=== PATIENT | male | born 1950 | race Caucasian/White ===

== ENCOUNTER 2018-02-01 21:19 | Inpatient (IN) | payer MEDICARE ==
[~2018-02-01] VITALS: Ht 172.7 cm; Wt 71.2 kg
[2018-02-01] MEDS ORDERED: ALBUTEROL SULFATE 2.5 MG/3 ML ONE (21:27)
[2018-02-01] MEDS ORDERED: ALBUTEROL 0.5%, 20ML NPPB SCH (21:30)
[2018-02-01] MEDS ORDERED: PLEASE ENTER HEIGHT AND WEIGHT MC SCH (21:30)
[2018-02-01] MEDS ORDERED: methylPREDNISolone SOD SUCC 125 MG/2 ML IVP ONE (21:30)
[2018-02-01 21:37] LABS: BASOPHILS # (AUTO) 0.05 x10^3/uL (0-0.1); BASOPHILS % (AUTO) 0 % (0-1); EOSINOPHILS # (AUTO) 0.31 x10^3/uL (0-0.4); EOSINOPHILS % (AUTO) 2 % (1-7); LYMPHOCYTES # (AUTO) 1.59 x10^3/uL (1-3.4); LYMPHOCYTES % (AUTO) 10 % (22-44); MD NO; MEAN CORPUSCULAR HEMOGLOBIN 32.5 pg (27.5-34.5); MEAN CORPUSCULAR HGB CONC 33.8 g/dL (33.2-36.2); MEAN CORPUSCULAR VOLUME 96.3 fL (81-97); MEAN PLATELET VOLUME 7.7 fL (7.4-10.4); MONOCYTES # (AUTO) 1.19 x10^3/uL (0.2-0.8); MONOCYTES % (AUTO) 7 % (2-9); NEUTROPHILS # (AUTO) 13.51 x10^3/uL (1.8-6.8); NEUTROPHILS % (AUTO) 81 % (42-75); PLATELET COUNT 398 x10^3/uL (130-400); RED BLOOD COUNT 4.35 x10^6/uL (4.38-5.82)
[2018-02-01 21:48] LABS: ALANINE AMINOTRANSFERASE 40 U/L (12-78); ALBUMIN 2.9 g/dL (3.4-5.0); ANION GAP 6 mmol/L (5-15); CALCIUM 8.5 mg/dL (8.5-10.1); CHLORIDE 106 mmol/L (98-107); CREATININE 1.04 mg/dL (0.7-1.3)
[2018-02-01 21:52] LABS: ALKALINE PHOSPHATASE 192 U/L (45-117); BILIRUBIN,TOTAL 0.6 mg/dL (0.2-1.0); TOTAL PROTEIN 7.5 g/dL (6.4-8.2); TROPONIN I 0.015 ng/mL (0.000-0.045)
[2018-02-01] MEDS: SODIUM CHLORIDE FLUSH 10ML SYR IVF SCH (23:00)
[2018-02-01] MEDS ORDERED: hydrALAzine 20 MG/ML, 1ML IVPush PRN (23:00)
[2018-02-01] MEDS ORDERED: BISACODYL 10 MG SUPP PR PRN (23:00)
[2018-02-01] MEDS ORDERED: ACETAMINOPHEN 325 MG TABLET PO PRN (23:00)
[2018-02-01] MEDS: methylPREDNISolone SOD SUCC 125 MG/2 ML IVPush SCH (23:00)
[2018-02-01] MEDS ORDERED: ONDANSETRON ODT 4 MG PO PRN (23:00)
[2018-02-01] MEDS ORDERED: DOXYCYCLINE 100 MG in DEXTROSE 5% 250 ML IV SCH (23:00)
[2018-02-01] MEDS ORDERED: POLYETHYLENE GLYCOL 17 GM PACKET PO PRN (23:00)
[2018-02-01] MEDS ORDERED: methylPREDNISolone SOD SUCC 125 MG/2 ML ONE (23:07)
[2018-02-01] MEDS ORDERED: CEFTRIAXONE PMX 1GM/50ML 50 ML ONE (23:08)
[2018-02-01] MEDS: CEFTRIAXONE PMX 1GM/50ML 50 ML IV SCH (23:17)
[2018-02-02 00:01] VITALS: BP 127/66
[2018-02-02] MEDS: SODIUM CHLORIDE 0.9% 1,000 ML IV SCH ×2 (00:07→14:36)
[2018-02-02] MEDS: HEPARIN 5,000 UNITS/ML, 1ML SQ SCH ×4 (00:08→23:20)
[2018-02-02] MEDS: NICOTINE 14MG/24 HR PATCH.TD24 TD SCH ×2 (00:09→23:22)
[2018-02-02] MEDS ORDERED: ALBUTEROL 0.5%, 20ML NPPB PRN (03:00)
[2018-02-02 05:17] LABS: MEAN CORPUSCULAR HGB CONC 32.6 g/dL (33.2-36.2); MEAN CORPUSCULAR VOLUME 98.1 fL (81-97); MEAN PLATELET VOLUME 8.3 fL (7.4-10.4); PLATELET COUNT 332 x10^3/uL (130-400); RED BLOOD COUNT 4.12 x10^6/uL (4.38-5.82); RED CELL DISTRIBUTION WIDTH 13.8 % (9.4-14.8)
[2018-02-02 05:24] LABS: ALBUMIN 2.5 g/dL (3.4-5.0); ANION GAP 5 mmol/L (5-15); CALCIUM 8.2 mg/dL (8.5-10.1); CHLORIDE 108 mmol/L (98-107)
[2018-02-02 05:28] LABS: ALANINE AMINOTRANSFERASE 37 U/L (12-78); ALKALINE PHOSPHATASE 184 U/L (45-117); BILIRUBIN,TOTAL 0.4 mg/dL (0.2-1.0); CREATININE 1.15 mg/dL (0.7-1.3); TOTAL PROTEIN 6.9 g/dL (6.4-8.2)
[2018-02-02 05:44] LABS: BASOPHILS # (AUTO) 0.01 x10^3/uL (0-0.1); BASOPHILS % (AUTO) 0 % (0-1); EOSINOPHILS % (AUTO) 0 % (1-7); LYMPHOCYTES # (AUTO) 0.51 x10^3/uL (1-3.4); LYMPHOCYTES % (AUTO) 4 % (22-44); MD SCAN; MONOCYTES # (AUTO) 0.11 x10^3/uL (0.2-0.8); MONOCYTES % (AUTO) 1 % (2-9); NEUTROPHILS # (AUTO) 13.17 x10^3/uL (1.8-6.8); NEUTROPHILS % (AUTO) 96 % (42-75)
[2018-02-02] MEDS: methylPREDNISolone SOD SUCC 125 MG/2 ML IVPush SCH ×4 (05:59→23:20)
[2018-02-02] MEDS: ASPIRIN 81 MG TABLET EC PO SCH (06:00)
[2018-02-02 08:21] VITALS: BP 116/68
[2018-02-02] MEDS: SODIUM CHLORIDE FLUSH 10ML SYR IVF SCH ×2 (09:00→22:04)
[2018-02-02] MEDS: SENNA/DOCUSATE TABLET PO SCH (09:22)
[2018-02-02 13:27] VITALS: BP 135/74
[2018-02-02 19:55] VITALS: BP 131/65
[2018-02-02] MEDS ORDERED: ALBUTEROL SULFATE 2.5 MG/3 ML ONE (22:27)
[2018-02-02] MEDS ORDERED: ALBUTEROL SULFATE 2.5 MG/3 ML NPPB PRN (23:00)
[2018-02-02] MEDS: CEFTRIAXONE PMX 1GM/50ML 50 ML IV SCH (23:19)
[2018-02-03 00:14] LABS: MICROSCOPIC NOT IND
[2018-02-03 00:23] LABS: CULTURE INDICATED? NO
[2018-02-03 00:48] VITALS: BP 130/60
[2018-02-03] MEDS: ASPIRIN 81 MG TABLET EC PO SCH (05:09)
[2018-02-03] MEDS: SODIUM CHLORIDE 0.9% 1,000 ML IV SCH ×2 (05:09→20:15)
[2018-02-03] MEDS: methylPREDNISolone SOD SUCC 125 MG/2 ML IVPush SCH ×2 (05:09→11:43)
[2018-02-03 06:50] VITALS: BP 115/67
[2018-02-03] MEDS: HEPARIN 5,000 UNITS/ML, 1ML SQ SCH ×3 (07:45→22:36)
[2018-02-03] MEDS: SENNA/DOCUSATE TABLET PO SCH (07:45)
[2018-02-03] MEDS: SODIUM CHLORIDE FLUSH 10ML SYR IVF SCH ×2 (07:45→21:00)
[2018-02-03] MEDS: ALBUTEROL SULFATE 2.5 MG/3 ML NPPB PRN ×2 (10:15→20:29)
[2018-02-03 12:10] VITALS: BP 110/63
[2018-02-03 19:00] VITALS: BP 133/66
[2018-02-03] MEDS: NICOTINE 14MG/24 HR PATCH.TD24 TD SCH (22:37)
[2018-02-03] MEDS: CEFTRIAXONE PMX 1GM/50ML 50 ML IV SCH (23:02)
[2018-02-04 01:36] VITALS: BP 119/58
[2018-02-04] MEDS: ALBUTEROL SULFATE 2.5 MG/3 ML NPPB PRN (04:06)
[2018-02-04] MEDS: ASPIRIN 81 MG TABLET EC PO SCH (06:07)
[2018-02-04 07:33] VITALS: BP 111/69
[2018-02-04] MEDS: HEPARIN 5,000 UNITS/ML, 1ML SQ SCH ×3 (07:55→23:34)
[2018-02-04] MEDS: SODIUM CHLORIDE FLUSH 10ML SYR IVF SCH ×2 (09:00→21:29)
[2018-02-04] MEDS: SENNA/DOCUSATE TABLET PO SCH (09:00)
[2018-02-04 12:07] VITALS: BP 144/75
[2018-02-04] MEDS ORDERED: ALBU6.7H IH (16:47)
[2018-02-04] MEDS ORDERED: ASPI81TA45 PO ×2 (16:47)
[2018-02-04] MEDS ORDERED: CEFD300C37 PO ×2 (16:47)
[2018-02-04] MEDS ORDERED: PRED10TA PO ×2 (16:47)
[2018-02-04 19:30] VITALS: BP 134/68
[2018-02-04] MEDS: CEFTRIAXONE PMX 1GM/50ML 50 ML IV SCH (23:34)
[2018-02-04] MEDS: NICOTINE 14MG/24 HR PATCH.TD24 TD SCH (23:34)
[2018-02-05 03:36] VITALS: BP 149/79
[2018-02-05] MEDS: ASPIRIN 81 MG TABLET EC PO SCH (05:57)
[2018-02-05 07:31] VITALS: BP 146/80
[2018-02-05] MEDS: SENNA/DOCUSATE TABLET PO SCH (09:00)
[2018-02-05] MEDS: SODIUM CHLORIDE FLUSH 10ML SYR IVF SCH ×2 (09:30→21:27)
[2018-02-05] MEDS: HEPARIN 5,000 UNITS/ML, 1ML SQ SCH ×3 (09:30→23:35)
[2018-02-05 12:26] VITALS: BP 148/71
[2018-02-05 21:35] VITALS: BP 146/76
[2018-02-05] MEDS: NICOTINE 14MG/24 HR PATCH.TD24 TD SCH (23:35)
[2018-02-05] MEDS: CEFTRIAXONE PMX 1GM/50ML 50 ML IV SCH (23:35)
[2018-02-06] VITALS: BP 145/72
[2018-02-06] MEDS: ASPIRIN 81 MG TABLET EC PO SCH (06:00)
[2018-02-06 07:25] VITALS: BP 155/85
[2018-02-06] MEDS: HEPARIN 5,000 UNITS/ML, 1ML SQ SCH ×3 (08:47→23:08)
[2018-02-06] MEDS: SODIUM CHLORIDE FLUSH 10ML SYR IVF SCH ×2 (08:48→21:35)
[2018-02-06] MEDS: SENNA/DOCUSATE TABLET PO SCH (08:48)
[2018-02-06] MEDS: ALBUTEROL SULFATE 2.5 MG/3 ML NPPB PRN (10:57)
[2018-02-06 12:41] VITALS: BP 144/75
[2018-02-06] MEDS ORDERED: PRED10TA PO (16:26)
[2018-02-06] MEDS ORDERED: ASPI81TA45 PO (16:31)
[2018-02-06 18:40] VITALS: BP 154/75
[2018-02-06] MEDS: NICOTINE 14MG/24 HR PATCH.TD24 TD SCH (23:08)
[2018-02-07 02:10] VITALS: BP 128/73
[2018-02-07] MEDS: ALBUTEROL SULFATE 2.5 MG/3 ML NPPB PRN (02:46)
[2018-02-07] MEDS: ASPIRIN 81 MG TABLET EC PO SCH (05:54)
[2018-02-07] MEDS: HEPARIN 5,000 UNITS/ML, 1ML SQ SCH ×2 (05:55→15:11)
[2018-02-07 06:35] VITALS: BP 135/66
[2018-02-07] MEDS: SENNA/DOCUSATE TABLET PO SCH (08:31)
[2018-02-07] MEDS: SODIUM CHLORIDE FLUSH 10ML SYR IVF SCH (08:31)
[2018-02-07 12:10] VITALS: BP 135/70
== END 2018-02-07 16:52 | DRG 871 ==
LOC: ED 22:10 → EDIP 22:43 → 5SO 23:18
PROVIDERS: ADMIT Internal Medicine; ATTEND Internal Medicine
DX: A41.9 Sepsis, unspecified organism (principal); J96.21 Acute and chronic respiratory failure with hypoxia; J44.1 Chronic obstructive pulmonary disease with (acute) exacerbation; E44.0 Moderate protein-calorie malnutrition; F17.200 Nicotine dependence, unspecified, uncomplicated; Z68.23 Body mass index [BMI] 23.0-23.9, adult; D72.829 Elevated white blood cell count, unspecified; F10.10 Alcohol abuse, uncomplicated; Y90.9 Presence of alcohol in blood, level not specified; I10 Essential (primary) hypertension; I25.10 Atherosclerotic heart disease of native coronary artery without angina pectoris; I25.2 Old myocardial infarction; I69.320 Aphasia following cerebral infarction; T38.0X5A Adverse effect of glucocorticoids and synthetic analogues, initial encounter; Z59.0 Homelessness; Y92.89 Other specified places as the place of occurrence of the external cause
CPT/HCPCS: 36415; 71045; 80053; 81003; 83880; 84484; 85025; 93005; 94640; 99291; G0378; J0696; J1644; J7060; J7613; J2930; J7030; J7512